=== PATIENT | female | born 1985 | race Caucasian/White ===

== ENCOUNTER 2019-12-24 23:53 | Emergency (ER) | payer MEDICAID, OTHER ==
[2019-12-25] MEDS ORDERED: PREDNISONE 20 MG TABLET PO ONE (01:10)
[2019-12-25 02:00] VITALS: BP 121/72
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
--- NOTE | 2019-12-25 09:02 | EKG REPORT ---
SEVERITY:- NORMAL ECG - SINUS RHYTHM INFERIOR Q WAVES, NORMAL VARIATION : Confirmed by: Leslie Feliciano MD 25-Dec-2019 09:02:07
== END 2019-12-25 01:55 | disposition home or self-care (01) ==
LOC: ER 23:53
DX: M54.12 Radiculopathy, cervical region (principal); R07.9 Chest pain, unspecified; F17.210 Nicotine dependence, cigarettes, uncomplicated
CPT/HCPCS: 93005; 99283; 93010; J7512